=== PATIENT | male | born 1940 | race Caucasian/White ===

== ENCOUNTER 2016-05-22 13:20 | Emergency (ER) | payer OTHER ==
[~2016-05-22] VITALS: Ht 172.7 cm; Wt 79.4 kg
[2016-05-22 13:26] VITALS: BP 149/86
[2016-05-22 14:06] LABS: ABSOLUTE BASOPHIL COUNT 0.1 /CUMM (0.0-0.2); ABSOLUTE EOSINOPHIL COUNT 0.1 /CUMM (0.0-0.7); ABSOLUTE GRANULOCYTE CT 9.2 /CUMM (1.4-6.5); ABSOLUTE LYMPH COUNT 1.8 /CUMM (1.2-3.4); ABSOLUTE MONOCYTE COUNT 0.9 /CUMM (0.10-0.60); BASOPHIL % 0.5 % (0.0-2.0); EOSINOPHIL % 0.8 % (0-5); GRANULOCYTE % 76.2 % (42.2-75.2); HEMATOCRIT 46.7 % (42-52); MEAN CORPUSCULAR HGB 30.8 PG (27.0-31.0); MEAN CORPUSCULAR HGB CONC 33.3 G/DL (33.0-37.0); MEAN CORPUSCULAR VOLUME 92.5 FL (80.0-94.0); MEAN PLATELET VOLUME 8.2 FL (7.4-10.4); PLATELET COUNT 325 /CUMM (130-400); RBC DISTRIBUTION WIDTH 12.7 % (11.5-14.5); RED BLOOD CELL CT 5.05 /CUMM (4.70-6.10); WHITE BLOOD CELL COUNT 12.1 /CUMM (4.8-10.8)
--- NOTE | 2016-05-22 16:39 | ED GI/GU/ABDOMINAL COMPLAINT ---
History of Present Illness General Chief Complaint: General Adult Stated Complaint: SIB MD BRO Vital Signs & Intake/Output Vital Signs & Intake/Output Vital Signs Date Time Temp Pulse Resp B/P Pulse O2 O2 Flow FiO2 Ox Delivery Rate 05/22 1326 97.2 73 20 149/86 99 Room Air Allergies Coded Allergies: No Known Allergies (05/22/16) Triage Note: PT PRESENTS TO ER C/O OF RIGHT FLANK PAIN X 1 WEEK. PT HAS CHORNIC LEFT KIDNEY HYDRONEPHROSIS PT SAW DR. BRO WHO DID A CT SCAN THAT SHOWED 3 STONES THAT WERE BLOCKING THE RIGHT KIDNEY. PER DR. BRO PT WILL NEED STENT. Past History Travel History Traveled to [place] past 21 day No Medical History Renal: nephrolithiasis, HYDRONEPRHOSIS LEFT KIDNE Psychosocial History What is your primary language Lithuanian Tobacco Use: Quit >30 days ago Progress Plan of Care: Orders Procedure Date/time Status Add-on Test (ER Only) 05/22 1635 Active URINALYSIS 05/22 1332 Complete COMPREHENSIVE METABOLIC PANEL 05/22 1332 Complete CBC WITHOUT DIFFERENTIAL 05/22 1332 Complete EKG 05/22 1332 Active Laboratory Tests 05/22/16 1346: Anion Gap 17 H, Estimated GFR 22 L, BUN/Creatinine Ratio 17.5, Glucose 143 H, Calcium 10.1, Total Bilirubin 1.0, AST 36, ALT 55, Alkaline Phosphatase 78, Total Protein 8.4 H, Albumin 4.5, Globulin 3.9, Albumin/Globulin Ratio 1.2, CBC w Diff NO MAN DIFF REQ, RBC 5.05, MCV 92.5, MCH 30.8, RDW 12.7, MPV 8.2, Gran % 76.2 H, Lymphocytes % 14.7 L, Monocytes % 7.8, Eosinophils % 0.8, Basophils % 0.5, Absolute Granulocytes 9.2 H, Absolute Lymphocytes 1.8, Absolute Monocytes 0.9 H, Absolute Eosinophils 0.1, Absolute Basophils 0.1, PUBS MCHC 33.3, Urine Color YEL, Urine Clarity CLEAR, Urine pH 6.0, Ur Specific Davidson 1.020, Urine Protein TRACE H, Urine Ketones TRACE H, Urine Nitrite NEG, Urine Bilirubin NEG , Urine Urobilinogen 0.2, Ur Leukocyte Esterase NEG, Ur Microscopic SEDIMENT EXAMINED, Urine RBC 3-5, Urine WBC 1-3 H, Urine Hemoglobin SMALL H, Urine Glucose NEG Departure Departure Condition: Stable Referrals: SANAZ NAQVI MD (PCP/Family) Departure Forms: Customer Survey General Discharge Information
--- NOTE | 2016-05-22 17:03 | ED GI/GU/ABDOMINAL COMPLAINT ---
History of Present Illness General Chief Complaint: General Adult Stated Complaint: SIB MD BRO Vital Signs & Intake/Output Vital Signs & Intake/Output Vital Signs Date Time Temp Pulse Resp B/P Pulse O2 O2 Flow FiO2 Ox Delivery Rate 05/22 1326 97.2 73 20 149/86 99 Room Air Allergies Coded Allergies: No Known Allergies (05/22/16) Triage Note: PT PRESENTS TO ER C/O OF RIGHT FLANK PAIN X 1 WEEK. PT HAS CHORNIC LEFT KIDNEY HYDRONEPHROSIS PT SAW DR. BRO WHO DID A CT SCAN THAT SHOWED 3 STONES THAT WERE BLOCKING THE RIGHT KIDNEY. PER DR. BRO PT WILL NEED STENT. Past History Travel History Traveled to [place] past 21 day No Medical History Renal: nephrolithiasis, HYDRONEPRHOSIS LEFT KIDNE Psychosocial History What is your primary language Azeri Tobacco Use: Quit >30 days ago Progress Plan of Care: Orders Procedure Date/time Status Add-on Test (ER Only) 05/22 1635 Active PARTIAL THROMBOPLASTIN TIME 05/22 1346 Active PROTHROMBIN TIME 05/22 1346 Active URINALYSIS 05/22 1332 Complete COMPREHENSIVE METABOLIC PANEL 05/22 1332 Complete CBC WITHOUT DIFFERENTIAL 05/22 1332 Complete EKG 05/22 1332 Active Laboratory Tests 05/22/16 1346: Anion Gap 17 H, Estimated GFR 22 L, BUN/Creatinine Ratio 17.5, Glucose 143 H, Calcium 10.1, Total Bilirubin 1.0, AST 36, ALT 55, Alkaline Phosphatase 78, Total Protein 8.4 H, Albumin 4.5, Globulin 3.9, Albumin/Globulin Ratio 1.2, PT Pending, INR Pending, APTT Pending, CBC w Diff NO MAN DIFF REQ, RBC 5.05, MCV 92.5, MCH 30.8, RDW 12.7, MPV 8.2, Gran % 76.2 H, Lymphocytes % 14.7 L, Monocytes % 7.8, Eosinophils % 0.8, Basophils % 0.5, Absolute Granulocytes 9.2 H, Absolute Lymphocytes 1.8, Absolute Monocytes 0.9 H, Absolute Eosinophils 0.1 , Absolute Basophils 0.1, PUBS MCHC 33.3, Urine Color YEL, Urine Clarity CLEAR, Urine pH 6.0, Ur Specific [place] 1.020, Urine Protein TRACE H, Urine Ketones TRACE H, Urine Nitrite NEG, Urine Bilirubin NEG, Urine Urobilinogen 0.2, Ur Leukocyte Esterase NEG, Ur Microscopic SEDIMENT EXAMINED, Urine RBC 3-5, Urine WBC 1-3 H, Urine Hemoglobin SMALL H, Urine Glucose NEG Departure Departure Condition: Stable Referrals: SANAZ NAQVI MD (PCP/Family) Departure Forms: Customer Survey General Discharge Information
[2016-05-22 17:09] LABS: PT 12.1 SEC (9.4-12.5); PTT 32 SEC (25-37)
[2016-06-29] MEDS ORDERED: CRESTOR10 M1 PO (09:58)
[2016-06-29] MEDS ORDERED: METFORMIN HCL500 M3 PO (09:58)
[2016-06-29] MEDS ORDERED: LISINOPRIL10 M1 PO (09:58)
[2016-06-29] MEDS ORDERED: ASPIRIN EC81 M1 (09:59)
[2016-06-29] MEDS ORDERED: BETIMOL5 M1 (09:59)
== END 2016-05-22 16:46 | disposition admitted as inpatient to this hospital (09) ==
LOC: ERH 13:20
PROVIDERS: Emergency Medicine
DX: N20.0 Calculus of kidney (principal)
CPT/HCPCS: 81001; 93005; 93010; 99281

== ENCOUNTER → 2016-07-03 | Day surgery (SDC) | payer OTHER ==
[~2016-07-03] VITALS: Ht 172.7 cm; Wt 79.4 kg
[~2016-07-03] MED LIST: ASPIRIN EC81 M1; BETIMOL5 M1; CRESTOR10 M1 PO; LISINOPRIL10 M1 PO; METFORMIN HCL500 M3 PO
--- NOTE | 2016-07-03 13:57 | Operative Report ---
Operative/Inv Procedure Report Surgery Date: 07/03/16 Name of Procedure: Cystoscopy R ureteroscopy, laser lithotripsy of R ureteral and R renal calculi, exchange of R ureteral stent Pre-Operative Diagnosis: R ureteral calculi, R renal calculi Post-Operative Diagnosis: same Estimated Blood Loss: less than 50ml Surgeon/Shoe Salesman: Essie SWAN,MIGUEL ÁNGEL Padilla Anesthesia: laryngeal mask airway Drains: 24 cm, 6 fr R double J ureteral stent Specimens: R ureteral stone fragments and urine culture Complications: none Condition: stable Operative Indication: Right distal ureteral calculi with urinary obstruction and increased creatinine Operative/Procedure Note Note: The patient was taken to the cystoscopy room and identified. He was placed in supine position on the cystoscopy table. A timeout was executed appropriately with the patient awake. Gen. anesthesia was induced via LMA. He was then placed in dorsal lithotomy position and prepped and draped in usual fashion for cystoscopy. Surgical pause was executed appropriately. Fluoroscopy image was taken with the marker on the right side of the abdomen to confirm the correct side of the surgery as well as a correct orientation of the fluoroscopy image. The 22 Icelandic cystoscope sheath was placed into the bladder under direct vision using the 30 lens. There was mild prostatic hypertrophy. The urethra was normal. On entering the bladder the distal portion of the right stent was seen. A guidewire was placed adjacent to the stent up the level of the kidney. Using a grasping forceps the right ureteral stent was removed leaving the wire in place. The rigid ureteroscope was advanced through the urethra into the bladder into the right distal ureter. There were multiple stones, quite sizable, seen in the right distal ureter. The holmium laser fiber was placed through the rigid ureteroscope and the stones fragmented into multiple fragments. Spiral basket was used to remove one of the fragments. Most of the remainder of the fragments were basketed and dropped into the bladder to pass spontaneously. At this point the rigid ureteroscope was used to place a second guidewire in the right ureter up to the level of the right kidney. Ureteroscope was removed. Over the second wire a ureteral access sheath was placed. Through the ureteral access sheath was placed the flexible ureteroscope. A stone in the lower pole calyx was visualized and fragmented using the holmium laser. Next the stone in the mid pole was visualized. This was partially fragmented. It could not be further fragmented due to some bleeding which secured visibility. Also there were significant respiratory excursions making it difficult to keep the laser contact with the stone. The flexible ureteroscope was removed. The cystoscope was back loaded onto the guidewire. An open-ended catheter was placed over the wire which was removed. Some contrast was injected through the open-ended catheter. This was done to outline the right renal collecting system. Guidewire was placed back through the open-ended catheter which was removed. Under visual fluoroscopic control a 24 cm 6 Icelandic right double-J ureteral stent was placed. Fluoroscopy confirmed the proximal and coiled in the kidney and the distal end coiled in the bladder. A long suture was left attached distal end of the stent exiting the urethra. The patient tolerated the procedure well. At its completion he was taken to the``recovery room in stable condition. This completes the operative dictation on Miguel Ángel Millan Findings: Multiple R distal ureteral calculi. Multiple R renal calculi Discharge Disposition: PACU
--- NOTE | 2016-07-05 06:33 | RADIOLOGY REPORT ---
EXAMINATION: INTRAOPERATIVE FLUOROSCOPIC GUIDANCE AND ABDOMEN CLINICAL INFORMATION: Right ureteroscopy and stent placement. COMPARISON: None. TECHNIQUE: Fluoroscopic time was utilized in the OR for Dr. Albarran Fluoroscopic images were obtained in the AP projection. FINDINGS: Fluoroscopic guidance was provided during right ureteroscopy and placement of a stent. Contrast material was infused into the dilated right renal collecting system. FLUOROSCOPY TIME: 2.1 minutes of fluoroscopic time was utilized for the entirety of this examination. IMPRESSION: Fluoroscopic guidance was provided during right ureteroscopy and placement of a stent. Contrast material was infused into the dilated right renal collecting system.
== END ==
LOC: STS 02:06
DX: N20.2 Calculus of kidney with calculus of ureter (principal); I10 Essential (primary) hypertension; E78.5 Hyperlipidemia, unspecified; E11.9 Type 2 diabetes mellitus without complications; Z79.84 Long term (current) use of oral hypoglycemic drugs
CPT/HCPCS: 74000; 82355; 87086; C2617; J0131; J0690; J2250

== ENCOUNTER → 2016-07-31 | Day surgery (SDC) | payer OTHER ==
[~2016-07-31] VITALS: Ht 172.7 cm; Wt 79.4 kg
--- NOTE | 2016-07-31 09:46 | Operative Report ---
Operative/Inv Procedure Report Surgery Date: 07/31/16 Name of Procedure: R renal ESWL Pre-Operative Diagnosis: Right renal calculi Post-Operative Diagnosis: Same Estimated Blood Loss: scant Surgeon/Pupil Personnel Services Director: Avis SWAN, Miguel Ángel BRO MD,MIGUEL ÁNGEL Padilla Anesthesia: local monitored anesthesi Drains: None Specimens: None Complications: None Condition: Stable Operative Indication: Multiple right renal calculi. This patient presented with right flank pain and elevated creatinine. CT scan revealed chronic left hydronephrosis with multiple stones in the left kidney. There were multiple stones in the right kidney as well as 2 stones in the right distal ureter causing obstruction. The patient initially underwent a right ureteral stent insertion. He subsequently underwent right ureteroscopy and laser lithotripsy with removal of the right ureteral calculi. His stent remains in place. In order to address the right renal calculi was felt that a trial of ESWL was appropriate realizing that more than one treatment may be necessary. If ESWL was unsuccessful that he would likely need a percutaneous procedure. Operative/Procedure Note Note: The patient was taken to the lithotripsy room and identified. He was placed in the supine position on the lithotripsy table. Timeout was executed appropriately. Using fluoroscopy the most medial of his renal calculi was localized to the F2 focal point. Surgical pause was executed appropriately at this point. He was then given intravenous sedation. The ESWL treatment was then begun. It was started at a low energy level and increased. A total 2500 shocks were given. There appeared to be some fragmentation of the targeted stone but not complete fragmentation. The patient tolerated the procedure well and as completion was taken to the same-day surgery area in stable condition. Findings: Multiple right renal calculi Discharge Disposition: Same Day Admissions
== END ==
LOC: STS 03:11
DX: N20.0 Calculus of kidney (principal); I10 Essential (primary) hypertension; E78.5 Hyperlipidemia, unspecified
CPT/HCPCS: J0690; J2250